=== PATIENT | male | born 1960 | race Caucasian/White ===

== ENCOUNTER 2023-10-04 10:35 | Emergency (ER) | payer OTHER, SELFPAY ==
[2023-10-04 10:43] VITALS: BP 151/100
[2023-10-04 10:57] VITALS: BMI 36.5
[2023-10-04 11:07] VITALS: BP 115/77
[2023-10-04 11:23] LABS: % Basophils 1.1 % (0-2); % Eosinophils 2.5 % (0-6); % Immature Granulocytes 0.6 % (0-0.5); % Lymphocytes 33.9 % (20.5-51.1); % Monocytes 19.9 % (1.7-9.3); Absolute Eosinophils 0.1 10^3/uL (0-0.7); Absolute Lymphocytes 1.2 10^3/uL (1.2-3.4); Absolute Monocytes 0.7 10^3/uL (0.1-0.6); Absolute Neutrophils 1.5 10^3/uL (1.4-6.5); Hematocrit 45.6 % (39.0-52.0); Hemoglobin 15.3 g/dL (13.0-18.0); Mean Corp Hgb Conc. 33.6 g/dL (33.0-37.0); Mean Corpuscular Hgb 33.3 pg (27.0-31.0); Mean Corpuscular Volume 99.3 fL (80.0-94.0); Mean Platelet Volume 9.8 fL (7.4-10.4); Nucleated Red Blood Cells % 0 % (-); Platelet Count 149 10^3/uL (130-400); Red Blood Cell Count 4.59 10^6/uL (4.70-6.10); Red Cell Dist. Width 14.2 % (11.5-14.5); White Blood Cell Count 3.6 10^3/uL (4.8-10.8)
[2023-10-04] MEDS: LOPRESSOR 5 MG IV ×2 (11:33→13:42)
--- NOTE | 2023-10-04 11:41 | ED.GENMED ---
History of Present Illness
General
Chief Complaint: Overdose Unintentional
Time Seen by Provider: 10/04/23 11:11
History of Present Illness
History of Present Illness:
63-year-old male with history of multiple myeloma in remission on oral chemotherapeutic agent, A-fib on Eliquis, hypertension presenting for cough. Patient reports for the past week he has been having persistent cough, difficulty expectorating
mucus. He doctor his primary care doctor, was started on Keflex and a cough medication. He has not had any improvement. Denies fever. Denies chest pain or difficulty breathing. Reports he has had some sweating. He is also unsure if he took an
additional dose of his chemo drug yesterday. Denies abdominal pain or vomiting, does note a bitter taste in his mouth. Denies additional complaints.
Phy Exam
Physical Exam
Physical Exam:
GENERAL: Alert , in no apparent distress
EYE: pupils equal and reactive
NECK: Supple, no significant adenopathy.
ENT: o/p clr, mmm.
CARDIAC: Irregularly irregular rhythm, tachycardic
LUNGS: No acute respiratory distress. Mild rhonchorous breath sounds to the right lower lung field
ABDOMEN: Soft, without focal tenderness, no r/g
NEUROLOGICAL: Alert and oriented, no focal neuro deficits
SKIN: Warm and dry, skin intact.
MUSCULOSKELETAL: No edema, well perfused.
PSYCH: Normal and appropriate interaction.
Course
Orders/Labs/Results
Orders:
Orders
10/04/23 11:09
Complete Blood Count/With Diff Urgent
Comprehensive Metabolic Panel Urgent
Lipase Urgent
10/04/23 11:11
Electrocardiogram (*1) Urgent
Reason for Study: Shortness of Breath
EKG- Treatment ONCE
10/04/23 11:25
Metoprolol [Lopressor] 5 mg IV NOW STA
CR Chest - 2 Views Urgent
Comment:
Reason For Exam: cough
10/04/23 13:30
Doxycycline [Vibramycin] 100 mg PO NOW STA
Metoprolol [Lopressor] 5 mg IV NOW STA
Abnormal Lab Results
10/04/23
11:09
WBC 3.6 L 10^3/uL
(4.8-10.8)
RBC 4.59 L 10^6/uL
(4.70-6.10)
MCV 99.3 H fL
(80.0-94.0)
MCH 33.3 H pg
(27.0-31.0)
Absolute Monos (auto) 0.7 H 10^3/uL
(0.1-0.6)
Immature Gran % 0.6 H %
(0-0.5)
Neutrophils % 42.0 L %
(42.2-75.2)
Monocytes % 19.9 H %
(1.7-9.3)
Glucose 119 H mg/dl
(70-99)
Total Bilirubin 2.5 H mg/dl
(0.2-1.3)
ALT 63 H U/L
(0-50)
10/04/23 11:09
10/04/23 11:09
Vital Signs
Initial and Last Documented VS:
Initial Vital Signs
Temp Pulse Resp BP Pulse Ox
99.7 F 80 16 151/100 97
10/04/23 10:43 10/04/23 10:43 10/04/23 10:43 10/04/23 10:43 10/04/23 10:43
Last Documented Vital Signs
Temp Pulse Resp BP Pulse Ox
99.7 F 110 22 111/87 95
10/04/23 10:43 10/04/23 12:45 10/04/23 12:45 10/04/23 12:00 10/04/23 12:45
MDM/Problems Addressed
MDM/Problems Addressed:
63-year-old male with history of multiple myeloma in remission on oral chemotherapeutic agent and atrial fibrillation on Eliquis presenting for cough and congestion. Vital signs on arrival for tachycardia.
On exam, patient in no acute respiratory distress. Overall benign pulmonary exam, mild rhonchorous breath sounds to the right lung field. Possible underlying pneumonia versus viral syndrome. Given duration of symptoms, will obtain chest x-ray
imaging for further evaluation. Patient currently on Keflex. Patient is also in A-fib with RVR. Son at bedside notes that he is sometimes uncontrolled, is on metoprolol. Will administer IV metoprolol to rate control. Lower suspicion for PE
given anticoagulation status. Regarding potential additional dose of chemotherapeutic agent. No significant GI symptoms or hemodynamic instability, without concern for present toxicity.
13:50 -patient's labs are relatively unremarkable. Slight elevation of T. bili, however no focal tenderness of the abdomen, patient tolerating p.o. chest x-ray however does show evidence of pneumonia, consistent with patient's symptoms. Feel
antibiotics should be switched, will start on doxycycline, rather than cephalexin. Heart rate remains elevated, however patient asymptomatic. Notes that he did not take any of his medications today. Will administer additional dose of metoprolol.
Patient feels comfortable going home with oral antibiotics, trial of outpatient therapy. However, strict return precautions communicated to patient and son at bedside lysed understanding.
*Critical Care Note
Total Time (30-74mins, 75-104mins- exclusive of procedures): Not Applicable
ED Attending Note
-
Portions of this chart may have been created with voice recognition software.� Occasional wrong word or��sound alike� substitutions may have occurred due to the inherent limitations of voice recognition software.
Discharge Plan
Interventions
Interventions:
*Risk Screen - Suicide Last Done: 10/04/23 10:57
*General Assessment Last Done: 10/04/23 10:57
*Neglect/Abuse Screening Last Done: 10/04/23 10:57
ED- Cardiac Assessment Last Done: 10/04/23 10:57
ED- Neurological Assessment Last Done: 10/04/23 10:57
ED-Psychological Assessment Last Done: 10/04/23 10:57
ED- Pulmonary Assessment Last Done: 10/04/23 10:57
Discharge Date and Time
Print Language: MALAY
[2023-10-04 11:51] LABS: ALT (SGPT) 63 U/L (0-50); AST (SGOT) 48 U/L (17-59); Albumin 4.3 g/dl (3.5-5.0); Alkaline Phosphatase 81 U/L (38-126); Blood Urea Nitrogen 12 mg/dl (9-20); Calcium 8.8 mg/dl (8.4-10.2); Carbon Dioxide 27 mmol/L (22-30); Chloride 104 mmol/L (98-107); Estimated Creatinine Clearance 85 ml/min; Glucose 119 mg/dl (70-99); Lipase 60 U/L (23-300); Potassium 4.2 mmol/L (3.5-5.1); Sodium 139 mmol/L (135-145); Total Bilirubin 2.5 mg/dl (0.2-1.3); Total Protein 7.4 g/dl (6.3-8.2); eGFR > 60.00
[2023-10-04 12:00] VITALS: BP 111/87
[2023-10-04 13:02] VITALS: BP 117/100
[2023-10-04] MEDS: VIBRAMYCIN 100 MG PO (13:42)
[2023-10-04 14:00] VITALS: BP 97/77
== END 2023-10-04 14:39 | disposition home or self-care (01) ==
LOC: EMR 10:35
PROVIDERS: Physician Assistant Medical; EMERGENCY PHYSICIAN Student in an Organized Health Care Education/Training Program; FAMILY PHYSICIAN Nurse Practitioner Adult Health
DX: J18.9 Pneumonia, unspecified organism (principal); I48.91 Unspecified atrial fibrillation; Z79.01 Long term (current) use of anticoagulants; I10 Essential (primary) hypertension
CPT/HCPCS: 99285; 96374; 96376; 71046; 80053; 83690; 85025; 93005